=== PATIENT | male | born 1965 | race Caucasian/White ===

== ENCOUNTER 2017-02-16 11:14 | Inpatient (IN) | payer MEDICAID ==
--- NOTE | 2017-02-16 11:43 | EDPHY ---
H & P Time Seen by Provider: 02/16/17 11:24 HPI/ROS: CHIEF COMPLAINT: Infection right leg HISTORY OF PRESENT ILLNESS: 52-year-old male presents to the emergency department with pain in his right leg. The patient states that he fell nearly 1 week ago and scraped his right lower leg on a piece of metal. He did not hit his head or lose consciousness. Noted about 3 or 4 days later that it was becoming more painful and red. He states that he came into the emergency department today now nearly a week later because the pain has become much more intense. Has noted some redness and swelling. No fevers or chills. No chest pain or difficulty breathing. Has not noticed any lymphangitis or pain in his right groin. He has not had previous skin infections. He is not a diabetic. Last tetanus shot was 3 years ago. REVIEW OF SYSTEMS: Constitutional: No fever, no chills. Eyes: No double or blurry vision. ENT: No sore throat. Respiratory: No cough, no shortness of breath. Cardiac: No chest pain. Gastrointestinal: No abdominal pain, vomiting or diarrhea. Genitourinary: No dysuria. Musculoskeletal: No neck or back pain. Skin: No rashes. Neurological: No headache. Past Medical/Surgical History: Orthopedic surgery right knee Social History: and lives in [place] Smoking Status: Current every day smoker Physical Exam: General Appearance: Alert, no distress. Temperature 36.9. 135/82, heart rate 93, 97% on room air. Nontoxic appearing. Eyes: Pupils equal and round. Extraocular motions are all intact. ENT: Mouth: Mucous membranes moist. Respiratory: No wheezing, rhonchi, or rales, lungs are clear to auscultation. Cardiovascular: Regular rate and rhythm. Gastrointestinal: Abdomen is soft and nontender, no masses, no rebound or guarding, bowel sounds normal. Neurological: Alert and oriented x 3, cranial nerves II through XII grossly intact Skin: Anterior right leg reveals an abrasion that measures 10 cm x 10 cm to the anterior mid right leg. There is surrounding redness and warmth. The redness extends distally toward the ankle. There is no lymphangitis although he does have some mild pain with palpation just proximal to the abrasion just below the right knee. Full range of motion of the right knee and right ankle. Warm and dry, no rashes. Musculoskeletal: Nontender to palpate along the cervical, thoracic or lumbar spine. Neck is supple. Extremities: Full range of motion and no peripheral edema. Psychiatric: Patient is oriented X 3, there is no agitation. Constitutional: Initial Vital Signs Temperature (C) 36.9 C 02/16/17 11:17 Heart Rate 93 02/16/17 11:17 Respiratory Rate 18 02/16/17 11:17 Blood Pressure 135/82 H 02/16/17 11:17 O2 Sat (%) 97 02/16/17 11:17 O2 Delivery Mode Room Air Allergies/Adverse Reactions: No Known Allergies Allergy (Verified 02/16/17 11:17) Home Medications: Medication Instructions Recorded NK [No Known Home Meds] 02/16/17 Medical Decision Making ED Course/Re-evaluation: 52-year-old male presents to the emergency department with cellulitis to the right lower leg. Patient has an elevated white blood cell count of 13.4. Patient has increasing pain. He will be admitted for IV antibiotics. Wound culture has been obtained and is pending. The patient was started on 1 g of vancomycin IV and Invanz 1 g IV will also be infuse. Patient will be admitted to the [facility] she Dr. Primitivo Zacarias Differential Diagnosis: Including but not limited to cellulitis, necrotizing fasciitis, DVT, osteomyelitis, sepsis - Data Points Laboratory Results: Laboratory Results 02/16/17 11:45 02/16/17 11:45 02/16/17 02/16/17 11:45 11:45 WBC 13.41 10^3/uL H 10^3/uL (3.80-9.50) RBC 4.32 10^6/uL L 10^6/uL (4.40-6.38) Hgb 14.4 g/dL g/dL (13.7-17.5) Hct 41.7 % % (40.0-51.0) MCV 96.5 fL fL (81.5-99.8) MCH 33.3 pg pg (27.9-34.1) MCHC 34.5 g/dL g/dL (32.4-36.7) RDW 12.4 % % (11.5-15.2) Plt Count 296 10^3/uL 10^3/uL (150-400) MPV 9.2 fL fL (8.7-11.7) Neut % (Auto) 71.8 % % (39.3-74.2) Lymph % (Auto) 16.7 % % (15.0-45.0) Stark % (Auto) 10.4 % % (4.5-13.0) Eos % (Auto) 0.0 % L % (0.6-7.6) Baso % (Auto) 0.7 % % (0.3-1.7) Nucleat RBC Rel Count 0.0 % % (0.0-0.2) Absolute Neuts (auto) 9.61 10^3/uL H 10^3/uL (1.70-6.50) Absolute Lymphs (auto) 2.24 10^3/uL 10^3/uL (1.00-3.00) Absolute Monos (auto) 1.40 10^3/uL H 10^3/uL (0.30-0.80) Absolute Eos (auto) 0.00 10^3/uL L 10^3/uL (0.03-0.40) Absolute Basos (auto) 0.10 10^3/uL 10^3/uL (0.02-0.10) Absolute Nucleated RBC 0.00 10^3/uL 10^3/uL (0-0.01) Immature Gran % 0.4 % % (0.0-1.1) Immature Gran # 0.06 10^3/uL 10^3/uL (0.00-0.10) Sodium 140 mEq/L mEq/L (134-144) Potassium 4.4 mEq/L mEq/L (3.5-5.2) Chloride 106 mEq/L mEq/L (97-110) Carbon Dioxide 25 mEq/l mEq/l (22-31) Anion Gap 9 mEq/L mEq/L (8-16) BUN 15 mg/dL mg/dL (7-23) Creatinine 0.7 mg/dL mg/dL (0.7-1.3) Estimated GFR > 60 Glucose 93 mg/dL mg/dL (70-100) Calcium 9.6 mg/dL mg/dL (8.5-10.4) Microbiology Results: MICROBIOLOGY 02/16/17 12:28 Leg - Swab Gram Stain - Final Medications Given: Discontinued Medications Ertapenem 1 gm/ Sodium (Chloride) 100 mls @ 200 mls/hr IV EDNOW ONE PRN Reason: Protocol Stop: 02/16/17 12:45 Last Admin: 02/16/17 14:40 Dose: 100 mls Vancomycin/Sodium Chloride (Vancomycin 1 Gm (Premix)) 250 mls @ 250 mls/hr IV EDNOW ONE PRN Reason: Protocol Stop: 02/16/17 13:15 Last Admin: 02/16/17 12:22 Dose: 250 mls Departure - Departure Disposition: [facility] Inpatient Acute Clinical Impression: Cellulitis of right leg Condition: Good
[2017-02-16 11:57] LABS: % IMMATURE GRANULYOCYTES 0.4 % (0.0-1.1); ABSOLUTE IMMATURE GRANULOCYTES 0.06 10^3/uL (0.00-0.10); ADD DIFF? NO; ADD MORPH? NO; ADD SCAN? NO; ATYPICAL LYMPHOCYTE FLAG 10 (0-99); FRAGMENT RBC FLAG 0 (0-99); HEMATOCRIT 41.7 % (40.0-51.0); HEMOGLOBIN 14.4 g/dL (13.7-17.5); LEFT SHIFT FLG 0 (0-99); LIPEMIA HEMOLYSIS FLAG 90 (0-99); MEAN CELL HEMOGLOBIN 33.3 pg (27.9-34.1); MEAN CELL HEMOGLOBIN CONCENTR. 34.5 g/dL (32.4-36.7); MEAN CELL VOLUME 96.5 fL (81.5-99.8); MEAN PLATELET VOLUME 9.2 fL (8.7-11.7); PLATELET CLUMPS FLAG 0 (0-99); PLATELET COUNT 296 10^3/uL (150-400); RED BLOOD CELL COUNT 4.32 10^6/uL (4.40-6.38); RED CELL DISTRIBUTION WIDTH 12.4 % (11.5-15.2)
[2017-02-16 12:10] LABS: ANION GAP 9 mEq/L (8-16); CALCIUM 9.6 mg/dL (8.5-10.4); CARBON DIOXIDE 25 mEq/l (22-31); CHLORIDE 106 mEq/L (97-110); CREATININE 0.7 mg/dL (0.7-1.3); GLOMERULAR FILTRATION RATE > 60; GLUCOSE 93 mg/dL (70-100); POTASSIUM 4.4 mEq/L (3.5-5.2); SODIUM 140 mEq/L (134-144)
[2017-02-16] MEDS ORDERED: VANCOMYCIN HCL/NORMAL SALINE 250 ML IV ONE (12:16)
[2017-02-16] MEDS ORDERED: ERTAPENEM 1 GM in NS 100 ML IV ONE (12:16)
[2017-02-16] MEDS ORDERED: ONDANSETRON 4 MG/2 ML VIAL IVP PRN (14:32)
[2017-02-16] MEDS ORDERED: ONDANSETRON DISINTEGRATING 4 MG TAB PO PRN (14:32)
[2017-02-16] MEDS ORDERED: HYDROCODONE/APAP 5/325 TAB PO PRN (14:32)
[2017-02-16] MEDS ORDERED: ACETAMINOPHEN 325 MG TAB PO PRN (14:32)
[2017-02-16] MEDS ORDERED: oxyCODONE IR 5 MG TAB PO PRN (14:32)
[2017-02-16] MEDS ORDERED: ZOLPIDEM TARTRATE 5 MG TAB PO PRN (14:32)
--- NOTE | 2017-02-16 14:57 | GHP ---
[f rep st] HISTORY AND PHYSICAL DATE OF ADMISSION: 02/16/2017 CHIEF COMPLAINT: Right lower extremity cellulitis. HISTORY OF PRESENT ILLNESS: This is a 52-year-old male with no significant past medical history. H e bumped his right dc on a piece of metal. Several days later, it started becoming red and over t he last week has been getting more erythematous with some more excoriation on the skin. He denies a ny fevers or chills. His last tetanus shot was 3 years ago. REVIEW OF SYSTEMS: A 10-point review of systems was obtained and, other than as stated above, was n egative. PAST MEDICAL HISTORY: None. MEDICATIONS: None. SOCIAL HISTORY: He does smoke cigarettes and drinks 1-2 drinks per day. PHYSICAL EXAM: VITAL SIGNS: Afebrile. Blood pressure is 122/72, heart rate 73, oxygen saturation 96% on room air. GENERAL: The patient is well-developed, no apparent distress. HEENT: Nonicteric sclerae. Extraocular movements intact. Moist mucous membranes. NECK: Supple. No thyromegaly. LUNGS: Good effort. Clear to auscultation bilaterally. CARDIOVASCULAR: Regular rate and rhythm. No murmurs or gallops. ABDOMEN: Positive bowel sounds. Soft, nontender, nondistended. No hepato splenomegaly. EXTREMITIES: Right lower extremity shows large area of superficial ulceration over t he dc with some surrounding erythema, especially traveling downward. NEUROLOGIC: Alert and orien gene x3. Moving all 4 extremities equally. PSYCHIATRIC: Normal affect. LABS: White blood cell count elevated at . Chemistries normal. ASSESSMENT: This is a 52-year-old male presenting with right lower extremity cellulitis. PLAN: The patient will be admitted for IV antibiotics. We will start off with IV Ancef and continu e to watch closely for improvement. /[id number]/MODL
[2017-02-16] MEDS: ceFAZolin 2 GM/DEXTROSE 100 ML IV SCH (21:35)
[2017-02-17 05:06] LABS: % IMMATURE GRANULYOCYTES 0.4 % (0.0-1.1); ABSOLUTE IMMATURE GRANULOCYTES 0.04 10^3/uL (0.00-0.10); ADD DIFF? NO; ADD MORPH? NO; ADD SCAN? NO; ALANINE AMINOTRANSFERASE 23 IU/L (21-72); ALKALINE PHOSPHATASE 84 IU/L (38-126); ASPARTATE AMINOTRANSFERASE 17 IU/L (17-59); ATYPICAL LYMPHOCYTE FLAG 10 (0-99); BILIRUBIN,TOTAL 0.4 mg/dL (0.1-1.4); CARBON DIOXIDE 25 mEq/l (22-31); CHLORIDE 109 mEq/L (97-110); CREATININE 0.7 mg/dL (0.7-1.3); FRAGMENT RBC FLAG 0 (0-99); GLOMERULAR FILTRATION RATE > 60; GLUCOSE 82 mg/dL (70-100); HEMATOCRIT 40.8 % (40.0-51.0); HEMOGLOBIN 13.7 g/dL (13.7-17.5); LEFT SHIFT FLG 0 (0-99); LIPEMIA HEMOLYSIS FLAG 80 (0-99); MEAN CELL HEMOGLOBIN 32.9 pg (27.9-34.1); MEAN CELL HEMOGLOBIN CONCENTR. 33.6 g/dL (32.4-36.7); MEAN CELL VOLUME 97.8 fL (81.5-99.8); MEAN PLATELET VOLUME 9.4 fL (8.7-11.7); PLATELET CLUMPS FLAG 10 (0-99); PLATELET COUNT 271 10^3/uL (150-400); RED BLOOD CELL COUNT 4.17 10^6/uL (4.40-6.38); RED CELL DISTRIBUTION WIDTH 12.6 % (11.5-15.2); SODIUM 139 mEq/L (134-144); TOTAL PROTEIN 5.8 g/dL (6.3-8.2)
[2017-02-17 05:23] LABS: ANION GAP 5 mEq/L (8-16); POTASSIUM 4.5 mEq/L (3.5-5.2)
[2017-02-17] MEDS: ceFAZolin 2 GM/DEXTROSE 100 ML IV SCH ×3 (06:00→22:16)
[2017-02-17] MEDS: ENOXAPARIN 40 MG/0.4 ML SYR SC SCH (08:10)
--- NOTE | 2017-02-17 11:28 | WOCRNPDOC ---
WOCR[facility] Advanced Assessment Note - Skin Integrity Problem, Advanced Assess Right Anterior Lower Leg Unknown Dressing Type: Open to Air Exudate Amount: None Integumentary Issue Intervention: Dressing Applied, Silver Gel Applied Destini Wound Tissue: Erythema (previously marked) Wound Bed Color: Brown, Parole, Yellow Wound Bed Constitution: Smooth Tissue (20%), Mixed Loose & Adhered Slough/ Eschar (80%) Site Odor: Moderate, Pungent Site Measurement - Head-to-Toe Length X Width X Depth (cm): 9.3x8.5x0.2 Skin Integrity Problem Comment: Unknown etiology. Wound infected with painful, hot, indurated erythema surrounding it. Wound bed needs moisture to debride the thin layers of eschar/slough over it. Cleaned with wound cleanser and applied liberal amount of silvasorb to wound bed. Covered with Murphy Wall RN in room for care. Wound care will round again on 02/19. Right Fourth Finger Dressing Type: Open to Air Skin Integrity Problem Comment: Non-draining area with approx 1x1 area of fluctuance over proximal interphalangeal joint. Relayed this to Dr. Pandey. May benefit from imaging/surgical consult. Left Lower Arm Dressing Type: Open to Air Wound Bed Constitution: Smooth Tissue Wound Edges: Epithelizing Site Measurement - Head-to-Toe Length X Width X Depth (cm): 2.2x2x0.1 Skin Integrity Problem Comment: Wound is at least 2-3 weeks old and is between the proliferative and maturation phase. This too needs some moisture to finish healing. No sign of infection.
--- NOTE | 2017-02-17 11:38 | HOSPPROG ---
Hospitalist Progress Note Assessment/Plan: * right lower extremity cellulitis * Improving * Continue IV Ancef * Continue wound care * right 4th finger area of fluctuance * Will watch in the day on antibiotics * May get surgery to open Subjective: Leg feels better Objective: Vital Signs Temp Pulse Resp BP Pulse Ox 36.6 C 71 16 130/79 H 97 02/17/17 07:41 02/17/17 07:41 02/17/17 07:41 02/17/17 07:41 02/17/17 07:41 Laboratory Results 02/17/17 04:30 02/17/17 04:30 02/16/17 02/17/17 02/18/17 05:59 05:59 05:59 Intake Total 1750 Balance 1750 - Physical Exam Constitutional: no apparent distress, appears nourished, not in pain Eyes: anicteric sclera Respiratory: no respiratory distress Musculoskeletal: other (Right lower extremity wound/cellulitis - improving erythema. Right 4th finger small amount of fluctuance) Neurologic: AAOx3 Psychiatric: interacting appropriately, not anxious, not encephalopathic, thought process linear ICD10 Worksheet Patient Problems: Problems Problem Status Onset Cellulitis of right leg Acute
[2017-02-18 04:52] LABS: % IMMATURE GRANULYOCYTES 0.4 % (0.0-1.1); ABSOLUTE IMMATURE GRANULOCYTES 0.03 10^3/uL (0.00-0.10); ADD DIFF? NO; ADD MORPH? NO; ADD SCAN? NO; ATYPICAL LYMPHOCYTE FLAG 30 (0-99); FRAGMENT RBC FLAG 0 (0-99); HEMATOCRIT 39.1 % (40.0-51.0); HEMOGLOBIN 13.2 g/dL (13.7-17.5); LEFT SHIFT FLG 0 (0-99); LIPEMIA HEMOLYSIS FLAG 90 (0-99); MEAN CELL HEMOGLOBIN 32.8 pg (27.9-34.1); MEAN CELL HEMOGLOBIN CONCENTR. 33.8 g/dL (32.4-36.7); MEAN CELL VOLUME 97.3 fL (81.5-99.8); MEAN PLATELET VOLUME 9.6 fL (8.7-11.7); PLATELET CLUMPS FLAG 0 (0-99); PLATELET COUNT 262 10^3/uL (150-400); RED BLOOD CELL COUNT 4.02 10^6/uL (4.40-6.38); RED CELL DISTRIBUTION WIDTH 12.2 % (11.5-15.2)
[2017-02-18 05:08] LABS: ANION GAP 3 mEq/L (8-16); CARBON DIOXIDE 24 mEq/l (22-31); CHLORIDE 111 mEq/L (97-110); CREATININE 0.7 mg/dL (0.7-1.3); GLOMERULAR FILTRATION RATE > 60; GLUCOSE 86 mg/dL (70-100); POTASSIUM 4.1 mEq/L (3.5-5.2); SODIUM 138 mEq/L (134-144)
[2017-02-18] MEDS: ceFAZolin 2 GM in D5W 100 ML IV SCH ×3 (05:57→21:52)
[2017-02-18] MEDS: ENOXAPARIN 40 MG/0.4 ML SYR SC SCH (08:56)
--- NOTE | 2017-02-18 14:39 | HOSPPROG ---
Hospitalist Progress Note Assessment/Plan: * right lower extremity cellulitis * Improving * Continue IV Ancef * Continue wound care * Discharged tomorrow after wound care sees patient * right 4th finger area of fluctuance * Appears to be getting better with antibiotics. Seems fairly small to be drained Subjective: Continues to improve Objective: Vital Signs Temp Pulse Resp BP Pulse Ox 36.4 C 72 17 149/95 H 95 02/18/17 08:00 02/18/17 08:00 02/18/17 08:00 02/18/17 08:00 02/18/17 08:00 Laboratory Results 02/18/17 04:32 02/18/17 04:32 02/17/17 02/18/17 02/19/17 05:59 05:59 05:59 Intake Total 1750 1730 Balance 1750 1730 - Physical Exam Constitutional: no apparent distress, appears nourished, not in pain Eyes: anicteric sclera, EOMI Ears, Nose, Mouth, Throat: moist mucous membranes, hearing normal Cardiovascular: regular rate and rhythym Respiratory: no respiratory distress, no rales or rhonchi, clear to auscultation Musculoskeletal: other (Right lower leg with improving cellulitits, continued superficial ulceration which appears to be healing well. Small fluctuant area over right 4th knuckle) ICD10 Worksheet Patient Problems: Problems Problem Status Onset Cellulitis of right leg Acute
[2017-02-18 15:52] VITALS: RESP 16; O2SAT 94
[2017-02-19] MEDS: ceFAZolin 2 GM in D5W 100 ML IV SCH (05:12)
[2017-02-19 07:57] VITALS: BP 146/97; PULSE 75; TEMP 98
[2017-02-19] MEDS: ENOXAPARIN 40 MG/0.4 ML SYR SC SCH (08:17)
--- NOTE | 2017-02-19 08:27 | WOCRNPDOC ---
[facility] Advanced Assessment Note - Skin Integrity Problem, Advanced Assess Right Anterior Lower Leg Unknown Dressing Type: Allevyn Life Dressing Description: Intact, Shadowed Exudate Amount: Minimal Exudate Color: Reddish/Yellow Exudate Characteristic(s): Serosanguinous Integumentary Issue Intervention: Dressing Changed, Silver Gel Applied Destini Wound Tissue: Erythema, Erythema Marked by Wound RN (Receding since it was marked on 02/17.) Destini Wound Swelling: Mild Wound Bed Color: Red, Yellow Wound Bed Constitution: Granulation Tissue (90%), Scab (5%), Adhered Slough ( trace, <5%) Wound Edges: Epithelizing Site Odor: Slight Skin Integrity Problem Comment: Slough noted in previous assessment has undergone autolysis, and presently there is only a trace amount adhered medially. Remaining wound bed is well-vascularized granulation tissue, w/ islands of epithelializing tissue noted throughout wound bed. Erythema marked on 02/17 is receding from margins, and patient reports site is both less painful and less swollen. Advise continuing w/ current treatment until site healed. Discussed wound care orders w/ patient, who reports he will be able to change the dressing by himself at home until he can be seen [facility]. telephone order dispatcher Ginette will supply him w/ some Allevyn dressings and a tube of Silvasorb gel. Left Lower Arm Dressing Type: Allevyn Life Dressing Description: Clean/Dry, Intact Exudate Amount: None Exudate Characteristic(s): None Integumentary Issue Intervention: Visualized Under Dressing Destini Wound Tissue: Indurated (Firm, w/ no c/o pain) Destini Wound Swelling: Mild Wound Bed Color: Brown Wound Bed Constitution: Scab Skin Integrity Problem Comment: Healing, older wound, scabbed throughout w/ no appreciable swelling and no c/o pain. Advised patient to continue keeping site moist and covered until fully healed. Right Fourth Finger Dressing Type: Open to Air Exudate Amount: None Exudate Characteristic(s): None Destini Wound Tissue: Erythema (Discrete, confined to joint only), Swollen Destini Wound Swelling: Mild Wound Bed Color: Brown Wound Bed Constitution: Scab Site Odor: None Skin Integrity Problem Comment: Pinpoint scab noted over R 4th proximal interphalangeal joint, surrounded by mild erythema and swelling. No appreciable fluctuance palpated during assessment, though tissue over joint is slightly slack which could indicate that there may have been a localized infection and swelling that is now abating. Patient denies pain to site. Discussed w/ patient the s/sx of infection to look out for. He will follow up with [facility] after DC, and wound RNs can re-assess this site at that time.
--- NOTE | 2017-02-19 10:31 | GDS ---
[f rep st] DISCHARGE SUMMARY DISCHARGE DIAGNOSIS: Right lower extremity cellulitis, probable Streptococcus pyogenes. HISTORY: This is a 52-year-old male, who presented with right lower leg pain, swelling, and excoria tion after an injury. HOSPITAL COURSE: The patient was admitted and placed on IV Ancef. His cellulitic component improve d. Wound Care saw the patient since he had a large area of granulation tissue and an excoriation. This improved quite well over the several days that he was here. He will follow up with the wound c are clinic. His wound culture did show Strep pyogenes. He will be discharged on Keflex and follow up. FOLLOWUP INSTRUCTIONS: He is to follow up with Wound Care and continue Keflex t.i.d. to finish a 10 -day course. TIME SPENT: Greater than 30 minutes was spent on discharge. /[id number]/MODL
== END 2017-02-19 10:46 | disposition home or self-care (01) | DRG 603 ==
LOC: OBSVTOIN 12:53 → F3N 13:28
PROVIDERS: ADMIT Internal Medicine; ATTEND Internal Medicine
DX: L03.115 Cellulitis of right lower limb (principal); B95.4 Other streptococcus as the cause of diseases classified elsewhere; F17.210 Nicotine dependence, cigarettes, uncomplicated
CPT/HCPCS: 96365; J0690; J1335; J1650; J3370